=== PATIENT | female | born 1995 | race Caucasian/White ===

== ENCOUNTER 2016-06-03 20:07 | Emergency (ER) | payer BC, OTHER ==
[~2016-06-03] VITALS: Ht 152.4 cm; Wt 93.3 kg
[~2016-06-03 20:07] MED LIST: BACTRIM,SEPT1 TABLET PO; MOTRIN600 MG PO; NORCO 5/3251 TABLET PO; PROAIR HFA8.5 GM IH; SINGULAIR10 MG PO; VICODIN 5-3001 EACH PO; ZOFRAN ODT4 MG PO; ZYRTEC10 M2 PO; ZYRTEC10 M3 PO
[2016-06-03] MEDS ORDERED: MINASTRIN 24 F1 EACH PO (21:27)
[2016-06-03 21:34] LABS: HEMATOCRIT 40.1 % (36.0-46.0); MCH 31.6 PG (29.0-34.0); MCHC 33.9 G/DL (30.0-36.0); MCV 93.3 FL (83-99); MEAN PLAT.VOLUME 9.3 uM^3 (9.5-12.4); PLATELET COUNT 292 K/uL (156-360); RBC DIS.WIDTH-SD 44.2 % (39-53); WHITE BLOOD COUNT 14.4 K/uL (4.1-10.2)
[2016-06-03 21:43] LABS: CHLORIDE 105 mEq/L (99-109); POTASSIUM 3.6 mEq/L (3.7-5.4); SODIUM 136 mEq/L (136-147)
[2016-06-03 21:45] LABS: GLUCOSE 96 mg/dL (70-99)
[2016-06-03 21:46] LABS: ANION GAP 10 MEQ/L (2-14)
[2016-06-03 21:47] LABS: TOTAL BILIRUBIN 0.2 mg/dL (0.0-1.0)
[2016-06-03 21:48] LABS: ALKALINE PHOSPHATASE 53 IU/L (3-129)
[2016-06-03 21:49] LABS: GFR ESTIMATE (CALCULATED) > 59 mL/min/
[2016-06-03 21:50] LABS: UREA NITROGEN (BUN) 11 mg/dL (9-23)
[2016-06-03 22:43] LABS: BILIRUBIN NEGATIVE; BLOOD NEGATIVE; COLOR YELLOW ((YELLOW)); GLUCOSE (STRIP) NEGATIVE; KETONES NEGATIVE; LEUKOCYTES NEGATIVE; NITRITE NEGATIVE; PROTEIN (STRIP) NEGATIVE; SPECIFIC GRAVITY 1.023 (1.000-1.030); UROBILINOGEN 0.2 MG/DL (0.2-1.0)
[2016-06-03 22:46] LABS: ADD MIUA? NO; UCUL ADDED? NO
[2016-06-04 00:05] VITALS: BP 133/76
== END 2016-06-04 00:08 | disposition home or self-care (01) ==
LOC: EME 20:07
PROVIDERS: Physician Assistant
DX: O46.92 Antepartum hemorrhage, unspecified, second trimester (principal); O99.512 Diseases of the respiratory system complicating pregnancy, second trimester; J45.909 Unspecified asthma, uncomplicated
CPT/HCPCS: 76805; 80053; 81003; 84702; 85027; 86900; 86901; 99281; 99285

== ENCOUNTER 2016-09-04 16:25 | Outpatient (CLI) | payer BC, OTHER ==
[~2016-09-04] VITALS: Ht 152.4 cm; Wt 95.5 kg
[~2016-09-04 16:25] MED LIST changes: +MINASTRIN 24 F1 EACH PO
[2016-09-04 16:31] VITALS: BP 99/68
[2016-09-04 17:28] LABS: ADD MIUA? YES; BILIRUBIN NEGATIVE; BLOOD NEGATIVE; COLOR YELLOW ((YELLOW)); GLUCOSE (STRIP) NEGATIVE; KETONES NEGATIVE; LEUKOCYTES MODERATE; NITRITE NEGATIVE; PROTEIN (STRIP) NEGATIVE; SPECIFIC GRAVITY 1.028 (1.000-1.030); UROBILINOGEN 0.2 MG/DL (0.2-1.0)
[2016-09-04 17:39] LABS: BACTERIA RARE /HPF; EPITHELIAL CELLS 1+ /HPF; HYALINE CASTS 0-5 /LPF; MUCUS TRACE /LPF; RED BLOOD CELLS 0-5 /HPF (0-5); UCUL ADDED? NO
== END 2016-09-04 19:45 | disposition home or self-care (01) ==
LOC: LDRP-OP 16:25 → 2WEST 16:26 → LDRP-OP 11-28 13:56
PROVIDERS: Midwife
DX: O26.893 Other specified pregnancy related conditions, third trimester (principal); R11.2 Nausea with vomiting, unspecified; R10.9 Unspecified abdominal pain; Z3A.32 32 weeks gestation of pregnancy
CPT/HCPCS: 59025; 81003; G0378

== ENCOUNTER 2016-11-02 19:19 | Inpatient (IN) | payer BC, OTHER ==
[~2016-11-02] VITALS: Ht 152.4 cm; Wt 101.6 kg
[2016-11-02 19:49] VITALS: BP 116/59
[2016-11-02 20:49] LABS: BASOPHIL COUNT 0.1 K/uL (0-0.1); EOSINOPHIL COUNT 0.3 K/uL (0-0.3); IMMATURE GRANULOCYTE (%) 0.4 % (0.0-0.7); IMMATURE GRANULOCYTE COUNT 0.1 K/uL; INSTRUMENT ABS NEUTROPHIL CT 10.8 K/uL; LYMPHOCYTE COUNT 1.7 K/uL (1.0-2.8); MCH 30.4 PG (29.0-34.0); MCHC 33.7 G/DL (30.0-36.0); MCV 90.2 FL (83-99); MEAN PLAT.VOLUME 9.8 uM^3 (9.5-12.4); MONOCYTE (%) 5.6 % (3-12); MONOCYTE COUNT 0.8 K/uL (0-0.8); NEUTROPHIL (%) 79.1 % (45-76); NEUTROPHIL COUNT 10.8 K/uL (1.8-6.4); PLATELET COUNT 247 K/uL (156-360); RBC DIS.WIDTH-CV 13.1 % (11.8-14.6); RBC DIS.WIDTH-SD 42.6 % (39-53); RED BLOOD COUNT 3.88 M/uL (3.80-5.20); WHITE BLOOD COUNT 13.7 K/uL (4.1-10.2)
[2016-11-02 20:53] VITALS: BP 124/59
[2016-11-02 21:04] LABS: ANION GAP 11 MEQ/L (2-14); CHLORIDE 106 MEQ/L (99-109); POTASSIUM 3.6 MEQ/L (3.7-5.4); SAMPLE HEMOLYSIS CHECK 0; SAMPLE ICTERIC CHECK 0; SAMPLE LIPEMIA CHECK 0; SODIUM 136 MEQ/L (136-147); TOTAL BILIRUBIN 0.3 MG/DL (0.0-1.0)
[2016-11-02 21:07] LABS: ALKALINE PHOSPHATASE 155 IU/L (3-129); GFR ESTIMATE (CALCULATED) > 59 mL/min/; GLUCOSE 76 mg/dL (70-99); UREA NITROGEN (BUN) 12 mg/dL (9-23); URIC ACID 4.8 mg/dL (3.1-9.2)
[2016-11-02 21:48] LABS: UR CREATININE CONCENTRATION 372.9 MG/DL
[2016-11-02 21:51] VITALS: BP 117/56
[2016-11-02 22:57] VITALS: BP 128/69
[2016-11-02 23:54] VITALS: BP 100/59
[2016-11-03] VITALS (44 sets, daily range): BP systolic 81–229; BP diastolic 42–153
[2016-11-04] MEDS ORDERED: DOCUSATE SODIU100 MG PO (00:12)
[2016-11-04] MEDS ORDERED: IBUPROFEN800 MG PO (00:12)
[2016-11-04] MEDS ORDERED: ENDOCET 5-3251 EACH PO (00:12)
[2016-11-04] MEDS ORDERED: PRENATAL TABLE1 EAC3 PO (00:12)
[2016-11-04 02:28] VITALS: BP 129/63
[2016-11-04 03:36] VITALS: BP 125/61
[2016-11-04 05:35] VITALS: BP 120/64
[2016-11-04 07:34] LABS: EOSINOPHIL (%) 0 % (0-5); HEMATOCRIT 34.8 % (36.0-46.0); IMMATURE GRANULOCYTE (%) 0.6 % (0.0-0.7); IMMATURE GRANULOCYTE COUNT 0.1 K/uL; LYMPHOCYTE COUNT 0.7 K/uL (1.0-2.8); MCHC 33.6 G/DL (30.0-36.0); MCV 92.1 FL (83-99); MONOCYTE (%) 3.8 % (3-12); MONOCYTE COUNT 0.8 K/uL (0-0.8); NEUTROPHIL (%) 91.9 % (45-76); PLATELET COUNT 249 K/uL (156-360); RBC DIS.WIDTH-CV 13.2 % (11.8-14.6); RBC DIS.WIDTH-SD 44.2 % (39-53); RED BLOOD COUNT 3.78 M/uL (3.80-5.20); WHITE BLOOD COUNT 19.6 K/uL (4.1-10.2)
[2016-11-04 16:00] VITALS: BP 116/61
[2016-11-04 19:45] VITALS: BP 114/56
[2016-11-04 23:00] VITALS: BP 107/51
[2016-11-05 02:45] VITALS: BP 113/58
[2016-11-05 07:34] VITALS: BP 107/60
[2016-11-05 11:21] VITALS: BP 102/61
[2016-11-05 14:44] VITALS: BP 108/66
[2016-11-05 20:20] VITALS: BP 110/59
[2016-11-06 07:24] VITALS: BP 110/60
== END 2016-11-06 16:50 | disposition home or self-care (01) | DRG 766 ==
LOC: LDRP-OP 19:19 → 2WEST 19:20 → LDRP-OP 11-28 20:34
PROVIDERS: Nurse Practitioner; Obstetrics & Gynecology
PROC: 3E033VJ Introduction of Other Hormone into Peripheral Vein, Percutaneous Approach (ICD-10-PCS; principal; 2016-11-02)
PROC: 0U7C7ZZ Dilation of Cervix, Via Natural or Artificial Opening (ICD-10-PCS; principal; 2016-11-02)
PROC: 3E0P7GC Introduction of Other Therapeutic Substance into Female Reproductive, Via Natural or Artificial Opening (ICD-10-PCS; principal; 2016-11-02)
PROC: 00HU33Z Insertion of Infusion Device into Spinal Canal, Percutaneous Approach (ICD-10-PCS; 2016-11-03)
PROC: 3E0S3CZ (ICD-10-PCS; 2016-11-03)
PROC: 10H073Z Insertion of Monitoring Electrode into Products of Conception, Via Natural or Artificial Opening (ICD-10-PCS; 2016-11-03)
PROC: 4A1H7CZ Monitoring of Products of Conception, Cardiac Rate, Via Natural or Artificial Opening (ICD-10-PCS; 2016-11-03)
PROC: 10D00Z1 Extraction of Products of Conception, Low, Open Approach (ICD-10-PCS; 2016-11-03)
PROC: 10907ZC Drainage of Amniotic Fluid, Therapeutic from Products of Conception, Via Natural or Artificial Opening (ICD-10-PCS; 2016-11-03)
DX: O14.94 Unspecified pre-eclampsia, complicating childbirth (principal); E66.9 Obesity, unspecified; O13.4 Gestational [pregnancy-induced] hypertension without significant proteinuria, complicating childbirth; O33.9 Maternal care for disproportion, unspecified; O62.0 Primary inadequate contractions; O61.8 Other failed induction of labor; O69.1XX0 Labor and delivery complicated by cord around neck, with compression, not applicable or unspecified; O99.214 Obesity complicating childbirth; Z68.30 Body mass index [BMI] 30.0-30.9, adult; O99.52 Diseases of the respiratory system complicating childbirth; O76 Abnormality in fetal heart rate and rhythm complicating labor and delivery; O99.824 Streptococcus B carrier state complicating childbirth; O77.0 Labor and delivery complicated by meconium in amniotic fluid; Z3A.40 40 weeks gestation of pregnancy; Z37.0 Single live birth; J45.30 Mild persistent asthma, uncomplicated
CPT/HCPCS: 80053; 82570; 84156; 84550; 85025; 99202; C1726; C1755; G0378; J0595; J0690; J1050; J1100; J2274; J2405; J2540; J2590; J7120